=== PATIENT | female | born 1995 ===

== ENCOUNTER 2022-04-11 11:29 | Outpatient (CLI) | payer MEDICAID, SELFPAY | END 2022-04-11 11:30 | disposition home or self-care (01) | LOC: LAB 11:31 | PROVIDERS: Family Provider Pediatrics Adolescent Medicine; Visit Provider Obstetrics & Gynecology | DX: Z34.90 Encounter for supervision of normal pregnancy, unspecified, unspecified trimester (principal) | CPT/HCPCS: 81000 ==

== ENCOUNTER 2022-04-25 10:11 | Outpatient (CLI) | payer MEDICAID, SELFPAY ==
[2022-04-25 11:51] LABS: Basophils % 0.3 %; Eosinophils # 0.1 10^3/uL (0.0-0.8); Eosinophils % 0.8 %; Hematocrit 36.9 % (37.0-47.0); Hemoglobin 12.5 g/dL (11.5-15.3); Lymphocytes # 1.7 10^3/uL (0.8-4.8); Lymphocytes % 16.9 %; Mean Corpuscular HGB Conc 33.9 g/dL (30.0-36.0); Mean Corpuscular Hemoglobin 32.4 pg (28.0-34.0); Mean Corpuscular Volume 95.6 fl (81-99); Mean Platelet Volume 10.1 fL (7.4-10.4); Monocytes # 0.6 10^3/uL (0.2-0.9); Monocytes % 5.6 %; Neutrophils # 7.64 10^3/uL (1.8-7.7); Neutrophils % 75.7 %; Nucleated Red Blood Cells % 0 %; Platelet Count 264 10^3/cmm (130-400); Red Blood Count 3.86 10^6/uL (4.1-5.3); Red Cell Distribution Width 13.1 % (12.1-15.1); White Blood Count 10.1 10^3/uL (4.0-10.0)
[2022-04-25 12:28] LABS: Hepatitis B Surface Antigen Non-Reactive (Nonreactive); Hepatitis C Virus Antibody Non-Reactive (Nonreactive)
[2022-04-25 12:29] LABS: Rubella IgG 97.9 IU/mL (0.0-10.0)
[2022-04-25 12:30] LABS: HIV 1 & 2 Antigen Non-Reactive (Non-Reactiv); Rapid Plasma Reagin Syphilis Nonreactive (Nonreactive)
[2022-04-25 12:31] LABS: HIV 1 & 2 Antibody Non-Reactive (Non-Reactiv)
[2022-04-25 12:40] LABS: Glucose Tolerance 1 Hour Gest 99 mg/dL
== END 2022-04-25 10:12 | disposition home or self-care (01) ==
LOC: LAB 10:14
PROVIDERS: PCP Obstetrics & Gynecology; Visit Provider Obstetrics & Gynecology
DX: Z34.90 Encounter for supervision of normal pregnancy, unspecified, unspecified trimester (principal)
CPT/HCPCS: 36415; 80307; 82950; 84315; 85025; 86592; 86762; 86803; 86850; 86900; 87086; 87340; 87806

== ENCOUNTER → 2022-05-09 08:48 | Outpatient (BNVA) | payer MEDICAID, SELFPAY | PROVIDERS: PCP Obstetrics & Gynecology; Visit Provider Obstetrics & Gynecology | DX: Z34.90 Encounter for supervision of normal pregnancy, unspecified, unspecified trimester (principal) | CPT/HCPCS: 84315; 87086 ==

== ENCOUNTER → 2022-05-22 09:00 | Outpatient (BNVA) | payer MEDICAID, SELFPAY | PROVIDERS: PCP Obstetrics & Gynecology; Visit Provider Obstetrics & Gynecology | DX: Z34.90 Encounter for supervision of normal pregnancy, unspecified, unspecified trimester (principal) | CPT/HCPCS: 81000; 85025; 87086 ==

== ENCOUNTER → 2022-06-07 10:00 | Outpatient (BNVA) | payer MEDICAID, SELFPAY | PROVIDERS: PCP Obstetrics & Gynecology; Visit Provider Obstetrics & Gynecology | DX: Z34.90 Encounter for supervision of normal pregnancy, unspecified, unspecified trimester (principal) | CPT/HCPCS: 84315; 87081 ==

== ENCOUNTER → 2022-06-13 12:00 | Outpatient (BNVA) | payer MEDICAID, SELFPAY | PROVIDERS: PCP Obstetrics & Gynecology; Visit Provider Obstetrics & Gynecology | DX: Z34.90 Encounter for supervision of normal pregnancy, unspecified, unspecified trimester (principal) | CPT/HCPCS: 87086 ==

== ENCOUNTER → 2022-06-20 10:40 | Outpatient (BNVA) | payer MEDICAID, SELFPAY | PROVIDERS: PCP Obstetrics & Gynecology; Visit Provider Obstetrics & Gynecology | DX: Z34.90 Encounter for supervision of normal pregnancy, unspecified, unspecified trimester (principal) | CPT/HCPCS: 84315; 87086 ==

== ENCOUNTER 2022-07-04 09:25 | Outpatient (CLI) | payer MEDICAID, SELFPAY ==
[2022-07-04] VITALS (8 sets, daily range): BP systolic 128–146; BP diastolic 83–106; PULSE 48–100; RESP 16; TEMP 35.8; BMI 42.7
--- NOTE | 2022-07-04 09:34 | US_ITS ---
WS: [id number] BIOPHYSICAL PROFILE AMNIOTIC FLUID HISTORY: WELL BEING COMPARISON: 06/13/2022 Cardiac activity: 126 bpm. Cervix: Not visualized. The head is very deep within the pelvis. Placenta: Anterior, no previa or abruption. Placenta grade: 1 Parameters are as follows: Breathin Movement: 2 Tone: 2 Fluid volume: 2 Amniotic fluid index: 20.8 cm. Largest single vertical pocket 8.4 cm. US/US OB [place] NST [id number] IMPRESSION: 1. Biophysical profile score: 8/8. 2. Normal amniotic fluid index.
[2022-07-04 11:02] LABS: Basophils % 0.3 %; Eosinophils % 0.4 %; Hematocrit 39.6 % (37.0-47.0); Hemoglobin 13.5 g/dL (11.5-15.3); Lymphocytes # 1.9 10^3/uL (0.8-4.8); Lymphocytes % 17.9 %; Mean Corpuscular HGB Conc 34.1 g/dL (30.0-36.0); Mean Corpuscular Hemoglobin 31.8 pg (28.0-34.0); Mean Corpuscular Volume 93.4 fl (81-99); Mean Platelet Volume 10.9 fL (7.4-10.4); Monocytes # 0.6 10^3/uL (0.2-0.9); Monocytes % 5.3 %; Neutrophils # 8.17 10^3/uL (1.8-7.7); Neutrophils % 75.6 %; Nucleated Red Blood Cells % 0 %; Platelet Count 273 10^3/cmm (130-400); Red Blood Count 4.24 10^6/uL (4.1-5.3); Red Cell Distribution Width 12.8 % (12.1-15.1); White Blood Count 10.8 10^3/uL (4.0-10.0)
[2022-07-04 11:16] LABS: Urine Creatinine 68 mg/dL (28-217); Urine Protein Random 10 mg/dL
[2022-07-04 11:17] LABS: Alanine Aminotransferase 13 U/L (0-33); Albumin Level 3.6 g/dL (3.5-5.2); Alkaline Phosphatase 158 U/L (35-105); Anion Gap 16.1 (5-19); Aspartate Amino Transferase 15 U/L (0-32); Blood Urea Nitrogen 8 mg/dL (6-20); Carbon Dioxide 21 mmol/L (22-29); Chloride 103 mmol/L (98-107); Globulin 3.1 g/dL (1.3-4.6); Glomerular Filtration Rate 196.1 mL/min (90-130); Glucose 79 mg/dL (65-115); Osmolality Calculated 279 mOsm/kg (285-295); Potassium 4.1 mmol/L (3.5-5.1); Sodium 136 mmol/L (136-145); Total Bilirubin 0.3 mg/dL (0.15-1.2); Total Protein 6.7 g/dL (6.6-8.7); UPRO/UCREAT Ratio 0.15 mg/mg CR; Uric Acid 5.8 mg/dL (2.4-5.7)
== END 2022-07-04 11:40 | disposition home or self-care (01) ==
LOC: OPOB 09:26 → OBGYN 09:27
PROVIDERS: PCP Obstetrics & Gynecology; Visit Provider Obstetrics & Gynecology
DX: O26.899 Other specified pregnancy related conditions, unspecified trimester (principal); Z3A.00 Weeks of gestation of pregnancy not specified
CPT/HCPCS: 36415; 59025; 76819; 80053; 82570; 84156; 84315; 84550; 85025; 87086; 99211

== ENCOUNTER 2022-07-07 13:21 | Inpatient (IN) | payer MEDICAID, SELFPAY ==
[2022-07-06] VITALS (23 sets, daily range): BP systolic 121–175; BP diastolic 64–101; PULSE 56–117; RESP 18; TEMP 36.3–36.4; BMI 42.7
[2022-07-06 13:07] LABS: Basophils % 0.2 %; Eosinophils % 0.2 %; Hematocrit 38.4 % (37.0-47.0); Hemoglobin 13.2 g/dL (11.5-15.3); Lymphocytes % 19.2 %; Mean Corpuscular HGB Conc 34.4 g/dL (30.0-36.0); Mean Corpuscular Hemoglobin 32.1 pg (28.0-34.0); Mean Corpuscular Volume 93.4 fl (81-99); Mean Platelet Volume 11.3 fL (7.4-10.4); Monocytes # 0.7 10^3/uL (0.2-0.9); Monocytes % 6.5 %; Neutrophils % 73.5 %; Nucleated Red Blood Cells % 0 %; Platelet Count 280 10^3/cmm (130-400); Red Blood Count 4.11 10^6/uL (4.1-5.3); Red Cell Distribution Width 12.8 % (12.1-15.1); White Blood Count 10.3 10^3/uL (4.0-10.0)
[2022-07-06] MEDS: miSOPROStol 100 mcg tablet 25 MCG VAGINAL ×2 (13:33→17:49)
[2022-07-06] MEDS: lactated ringers 1,000 ML 999 ML IV ×2 (17:05→21:23)
[2022-07-06] MEDS: oxytocin 30 UNIT/500 ML BAG IV (23:39)
[2022-07-06] MEDS: dextrose 5%-lactated ringers 1,000 ML 125 ML IV (23:39)
[2022-07-07] VITALS (83 sets, daily range): BP systolic 109–191; BP diastolic 56–106; PULSE 54–173; RESP 15–16; TEMP 36–37.4; O2SAT 92–100
[2022-07-07] MEDS: dextrose 5%-lactated ringers 1,000 ML 125 ML IV ×2 (03:01→10:08)
[2022-07-07] MEDS: lactated ringers 1,000 ML 999 ML IV ×2 (04:26→05:28)
[2022-07-07] MEDS: ondansetron 2 mg/ML SDV 2 mL 4 MG IVP ×2 (04:45→11:16)
--- NOTE | 2022-07-07 05:49 | ANES.PREANE2 ---
Pre-Anesthetic Assessment Height/Weight: Height 1.68 m Weight 120.202 kg Temp Pulse Resp BP Pulse Ox O2 Del Method 97.0 F L 78 18 142/63 99 07/07/22 02:43 07/07/22 05:45 07/06/22 12:42 07/07/22 05:45 07/07/22 05:42 07/07/22 05:18 Preop Diagnosis: Active Labor Labor Epidural Familial anesthetic complications: none Was Beta Sanjeev taken within 24 hours: N/A Last intake: 1500 07/07/22 Social No alcohol and No tobacco Exam alert, oriented x 3 and clear to auscultation bilaterally Airway Submandibular: within normal limits Cervical ROM: within normal limits Mallampati: Class II Dentition: full History/ROS No significant history except as noted Pulmonary None reported CV/HEM None reported None reported Hepatic None reported GI None reported Metabolic Morbid Obesity [facility] None reported Neuropsych None reported Anesthetic Plan ASA status: 2 Anesthesia: Regional (specify below) Other: Labor Epidural Medications/Allergies Home Medications Medication Instructions Recorded Confirmed Last Taken Type prenat.vits,pietro,mdc-[id number] 1 tab PO DAILY 03/06/22 07/06/22 07/05/22 21:00 History Allergies Allergy/AdvReac Type Severity Reaction Status Date / Time No Known Allergies Allergy Verified 07/06/22 12:26 Current Medications Generic Name Dose Route Start Last Admin Trade Name Freq PRN Reason Stop Dose Admin Dextrose/Lactated Ringer's 1,000 mls @ 125 mls/hr 07/06/22 12:42 07/07/22 03:01 Dextrose 5%-Lactated Ringers IV 125 mls/hr .Q8H PRN Administration per label comments Lactated Ringer's 1,000 mls @ 999 mls/hr 07/06/22 16:58 07/06/22 22:30 Lactated Ringers IV Infused .Q1H1M PRN Infusion LABOR INDUCTION Oxytocin 30 unit in 500 mls @ 1 mls/hr 07/06/22 22:30 07/07/22 02:20 Pitocin IV 0 milliunit/min .Q24H ELKE 0 mls/hr Titration Protocol 1 MILLIUNIT/MIN Lactated Ringer's 1,000 mls @ 999 mls/hr 07/07/22 04:15 07/07/22 05:28 Lactated Ringers IV 999 mls/hr .Q1H1M PRN Administration See label comments Misoprostol 25 mcg 07/06/22 17:39 07/06/22 17:49 Misoprostol 100 Mcg Tablet VAGINAL 25 mcg Q4H PRN Administration LABOR INDUCTION Ondansetron HCl 4 mg 07/06/22 12:42 07/07/22 04:45 Ondansetron 2 Mg/Ml Sdv 2 Ml IVP 4 mg Q4H PRN Administration NAUSEA AND VOMITING PFSH Anesthesia Surgical History No pertinent past surgical history Family History Grandfather Diabetes Heart disease Hypertension Mother Hypertension Denies family history of Colon cancer Ovarian cancer Hypercholesteremia Breast cancer Uterine cancer Thyroid disease Stroke Female Reproductive History : 1 Data Anesthesia 07/06/22 12:30 Short CBC 07/06/22 Range/Units 12:30 WBC 10.3 H (4.0-10.0) 10^3/uL Hgb 13.2 (11.5-15.3) g/dL Hct 38.4 (37.0-47.0) % MCV 93.4 (81-99) fl Plt Count 280 (130-400) 10^3/cmm Neut % (Auto) 73.5 % Neut # (Auto) 7.60 (1.8-7.7) 10^3/uL Cardiac Studies: No Data to Display Anesthesia Procedures Epidural Time Out Performed: Yes Consent: from patient, risks and benefits reviewed and patient agrees to proceed Lumbar Level: L3-L4 Epidural position: sitting Epidural procedure: sterile prep of area, 1% lidocaine to numb the area, negative for paresthesia passed, test dose given, 1.5% xylocaine 1:200k epi, placed PCEA, no systemic response, sterile dressing applied, L.U.D. no apparent complications and 0.2% Ropiavacaine @ mls/hr (13) Additional Comments: KIEL at 8.5cm on first attempt catheter threaded to 15cm with ease. 100mcg Fentanyl, remaining 1% lidocaine and saline given via epidural.
--- NOTE | 2022-07-07 13:23 | PM.OPHPUD ---
Labor & Delivery H&P Update Date of Procedure: July 07, 2022 Date H&P Performed: 07/04/22 H&P update information: I have reviewed H&P completed within last 30 days, I have examined patient prior to procedure and No changes to prior documentation Admission Diagnosis: IUP@ 40 weeks, 3 days, induction of labor at term Preop diagnosis: induction of labor Related Problem List Diagnoses (1) Supervision of normal :
[2022-07-07 14:22] LABS: Basophils % 0.1 %; Hematocrit 38.3 % (37.0-47.0); Hemoglobin 12.9 g/dL (11.5-15.3); Lymphocytes # 1.1 10^3/uL (0.8-4.8); Mean Corpuscular HGB Conc 33.7 g/dL (30.0-36.0); Mean Corpuscular Hemoglobin 32.3 pg (28.0-34.0); Mean Corpuscular Volume 95.8 fl (81-99); Mean Platelet Volume 11.9 fL (7.4-10.4); Monocytes # 0.9 10^3/uL (0.2-0.9); Monocytes % 5.7 %; Neutrophils # 13.22 10^3/uL (1.8-7.7); Neutrophils % 86.8 %; Nucleated Red Blood Cells % 0 %; Platelet Count 223 10^3/cmm (130-400); Red Cell Distribution Width 12.9 % (12.1-15.1); White Blood Count 15.2 10^3/uL (4.0-10.0)
[2022-07-07 14:33] LABS: Blood Urine 3+ (Negative); Glucose Urine UA Norm (Normal); Ketones Urine 1+ (Negative); Protein Urine Trace (Negative); Specific Gravity, Urine 1.005 (1.005-1.030); Urine Appearance SL Hazy (CLEAR); Urine Color Yellow (Yellow); pH Urine 8 (5-7)
[2022-07-07 14:34] LABS: Add Urine Culture? Yes; Add Urine Microscopic? YES; Bacteria Urine TRACE /hpf; Bilirubin Urine Neg (Negative); Leukocyte Esterase Urine 2+ (Negative); Nitrate Urine Negative (Negative); RBC Urine 40-50 /hpf (0-2); Squamous Epithelial Cell Urine 0-4 /hpf (0-5); Urobilinogen Urine Norm (Negative); WBC Urine 15-25 /hpf (0-5)
[2022-07-07 14:49] LABS: Alanine Aminotransferase 13 U/L (0-33); Albumin Level 3.2 g/dL (3.5-5.2); Alkaline Phosphatase 159 U/L (35-105); Anion Gap 16.7 (5-19); Aspartate Amino Transferase 16 U/L (0-32); Blood Urea Nitrogen 9 mg/dL (6-20); Calcium 8.9 mg/dL (8.5-10.5); Carbon Dioxide 22 mmol/L (22-29); Chloride 104 mmol/L (98-107); Globulin 2.8 g/dL (1.3-4.6); Glomerular Filtration Rate 102.8 mL/min (90-130); Glucose 86 mg/dL (65-115); Osmolality Calculated 286 mOsm/kg (285-295); Potassium 3.7 mmol/L (3.5-5.1); Sodium 139 mmol/L (136-145); Total Bilirubin 0.6 mg/dL (0.15-1.2); Uric Acid 6.3 mg/dL (2.4-5.7)
[2022-07-07 14:52] LABS: Sulfosalicylic Acid Urine Positive (Negative)
[2022-07-07 14:55] LABS: Urine Creatinine 72 mg/dL (28-217)
[2022-07-07 15:12] LABS: UPRO/UCREAT Ratio 0.47 mg/mg CR; Urine Protein Random 34 mg/dL
--- NOTE | 2022-07-07 16:31 | PM.DELIVERY ---
Delivery Note: Date of delivery: July 07, 2022 Pre-delivery diagnoses: IUP@ 40 weeks, 3 days Post-delivery diagnoses: same, moderate shoulder dystocia Procedure: Delivering Physician: Luke Findings: Term female in the JC presentation with a double nuchal cord reduced at the perineum Pre-Delivery Course: The patient was admitted for induction at term. She received two doses of cytotec. She began to labor spontaneously. SROM occurred. The patient received an epidural for pain management. pitocin was started to augment labor. max dose was 6 units. She had complete cervical dilation and began pushing. Delivery: The patient had complete cervical dilation and began to push. The head delivered in the JC position over an intact perineum under epidural anesthesia. The head was very slow to emerge. Jackie maneuver was performed. The anterior shoulder would not deliver. Suprapubic pressure was applied and the infant lifted anteriorly. The posterior (left ) arm delivered. This was followed by the right arm and the remainder of the body. There was a double nuchal cord. It was reduced at the perineum. Total time of dystocia was 20 seconds. There was thick meconium present at time of delivery. The nose and mouth were bulb suctioned while the cord was quickly clamped and cut. The baby was taken to the warmer for evaluation and resuscitation. She was not moving the right arm, but was moving the right hand into a fist. The placenta delivered spontaneously. Cord blood was obtained. The placenta was inspected and found to be intact. Inspection of the perineum revealed a small vaginal laceration it was repaired with 2 interrupted sutures. Estimated blood loss 50 mL. Apgars on baby were 6 at 1 minute and 8 at 5 minutes. Weight of baby is 9 pounds 1 ounce. Mother and baby were stable post delivery. History History History 1 Term 0 Miscarriages/Ectopic Living Children Coding Level of Care Code Acute Code for Chg Fwd
[2022-07-07] MEDS: ibuprofen 800 mg tablet PO (21:32)
[2022-07-07] MEDS: docusate sodium 100 mg Capsule PO (21:32)
[2022-07-07] MEDS: benzocaine-menthol 78 gm Canister 1 SPRAY TOPICAL (21:33)
[2022-07-07] MEDS: lanolin oint 7 gm 1 APPLIC TOPICAL (21:33)
[2022-07-08 00:10] VITALS: BP 156/90; PULSE 80; RESP 16; O2SAT 97
[2022-07-08 01:58] VITALS: BP 129/78; PULSE 71; RESP 16; O2SAT 98
[2022-07-08 04:48] LABS: Hematocrit 33.3 % (37.0-47.0); Hemoglobin 11.2 g/dL (11.5-15.3); Mean Corpuscular HGB Conc 33.6 g/dL (30.0-36.0); Mean Corpuscular Volume 95.1 fl (81-99); Mean Platelet Volume 10.9 fL (7.4-10.4); Platelet Count 208 10^3/cmm (130-400)
[2022-07-08 06:06] VITALS: BP 136/81; PULSE 74; RESP 18; TEMP 36.7; O2SAT 98
[2022-07-08] MEDS: prenatal vitamin Capsule 1 CAP PO (09:01)
[2022-07-08] MEDS: docusate sodium 100 mg Capsule PO ×2 (09:01→18:24)
[2022-07-08] MEDS: ibuprofen 800 mg tablet PO ×3 (09:01→21:30)
--- NOTE | 2022-07-08 10:09 | ANE.PACU2 ---
Inpatient post-anesthesia follow up: Airway intact: Yes Vital signs: Temperature 98.0 F Pulse Rate 74 Respiratory Rate 18 Blood Pressure 136/81 Pulse Oximetry 98 Oxygen Delivery Me thod Room Air Oxygen Flow Rate Fraction of Inspir ed Oxygen Hydration adequate: Yes Nausea and vomiting: No Pain level: 2 Mental status: Baseline
[2022-07-08 11:00] VITALS: BP 126/72; PULSE 76; RESP 14; TEMP 36.8
[2022-07-08 15:30] VITALS: BP 103/69; PULSE 74; RESP 15; TEMP 36.7
--- NOTE | 2022-07-08 17:59 | P.PN_ITS ---
Subjective Subjective: The patient is doing well this morning. Baby has been examined by medical communication specialist and is moving arms normally. Vitals/I&O/Wt Last Vital Signs Temp 98.1 F 07/08/22 15:30 Pulse 74 07/08/22 15:30 Resp 15 07/08/22 15:30 BP 103/69 07/08/22 15:30 Pulse Ox 98 07/08/22 06:06 O2 Del Method 07/08/22 06:06 Physical Exam Narrative: The patient has no concerns today Const: COMMON NORMALS: no acute distress, patient oriented x3, no limitations, healthy appearing, alert and well nourished GENERAL APPEARANCE: cooperative, comfortable, well kempt and well developed ORIENTATION/CONSCIOUSNESS: Yes mee ke, Yes oriented to person, Yes oriented to place and Yes oriented to time Resp: COMMON NORMALS: normal respiratory effort EFFORT & INSPECTION: Yes able to speak in complete sentences GI: COMMON NORMALS: Soft to palpation and non-tender PALPATION: Yes Soft to palpation Extremity: COMMON NORMALS: no calf tenderness Neuro: COMMON NORMALS: patient oriented x3 SENSORIUM/ORIENTATION: Yes alert, Yes oriented to person, Yes oriented to place and Yes oriented to time Psych: COMMON NORMALS: mental status grossly normal, Normal thought process present, cooperative, normal affect and speech normal APPEARANCE: Yes well kempt SPEECH: Yes normal speech THOUGHT PROCESS: Normal thought process present Urinary Catheter Management: Mac: Cath Placed During This Visit: yes, but has since been removed by the nurse Reason for Continuing Indwelling Catheter: Accurate Measurement of Urinary Outp ut in Critically Ill Patients Urinary Catheter Date of Insertion: 07/07/22 Urinary Catheter Time of Insertion: 06:00 Date Urinary Catheter Removed: 07/07/22 Time Urinary Catheter Discontinued: 14:10 Data 07/08/22 04:39 07/07/22 12:54 Attestations Medical Necessity Statement*: The patient is requesting discharge tomorrow due to weather Coding Level of Care Code Acute Code for Chg Fwd
[2022-07-08 22:47] VITALS: BP 129/80; PULSE 78; RESP 14; TEMP 36.6; TEMP 36.7
[2022-07-09] MEDS: ibuprofen 800 mg tablet PO (07:28)
[2022-07-09] MEDS: prenatal vitamin Capsule 1 CAP PO (07:28)
[2022-07-09] MEDS: docusate sodium 100 mg Capsule PO (07:28)
[2022-07-09 07:30] VITALS: BP 121/76; PULSE 75; RESP 16; TEMP 36.7
--- NOTE | 2022-07-09 09:31 | P.DS_ITS ---
Discharge Providers Date of Admission: 07/07/22 13:21 Date of Discharge: July 09, 2022 Attending Provider at Admission: Kayla Butler MD Attending Provider at Discharge: Kayla Butler MD Primary Care Provider: Kayla Butler MD Diagnoses at Discharge Discharge Diagnosis (1) Supervision of normal : Status: Acute Reason for Visit Reason for Visit: induction Hospital Course Hospital Course The patient was admitted for induction at term. She had spontaneous delivery of a term . She had a 20 second shoulder dystocia. mother and baby were stable on day #2. She will be discharged home on stable condition. Physical Exam Narrative: The patient is doing well this morning. No concerns. Const: COMMON NORMALS: no acute distress, patient oriented x3, no limitations, healthy appearing, alert and well nourished GENERAL APPEARANCE: cooperative, comfortable, well kempt and well developed ORIENTATION/CONSCIOUSNESS: Yes awake, Yes oriented to person, Yes oriented to place and Yes oriented to time Resp: COMMON NORMALS: normal respiratory effort EFFORT & INSPECTION: Yes able to speak in complete sentences GI: COMMON NORMALS: Soft to palpation and non-tender PALPATION: Yes Soft to palpation Extremity: COMMON NORMALS: no calf tenderness Neuro: COMMON NORMALS: patient oriented x3 SENSORIUM/ORIENTATION: Yes alert , Yes oriented to person, Yes oriented to place and Yes oriented to time Psych: COMMON NORMALS: mental status grossly normal, Normal thought process present, cooperative, normal affect and speech normal APPEARANCE: Yes well kempt SPEECH: Yes normal speech THOUGHT PROCESS: Normal thought process present Urinary Catheter Management: Mac: Cath Placed During This Visit: yes, but has since been removed by the nurse Reason for Continuing Indwelling Catheter: Accurate Measurement of Urinary Output in Critically Ill Patients Urinary Catheter Date of Insertion: 07/07/22 Urinary Catheter Time of Insertion: 06:00 Date Urinary Catheter Removed: 07/07/22 Time Urinary Catheter Discontinued: 14:10 Discharge Data Studies Completed and Pending Laboratory Results WBC 16.0 10^3/uL (4.0-10.0) H 07/08/22 04:39 RBC 3.50 10^6/uL (4.1-5.3) L 07/08/22 04:39 Hgb 11.2 g/dL (11.5-15.3) L 07/08/22 04:39 Hct 33.3 % (37.0-47.0) L 07/08/22 04:39 MCV 95.1 fl (81-99) 07/08/22 04:39 MCH 32.0 pg (28.0-34.0) 07/08/22 04:39 MCHC 33.6 g/dL (30.0-36.0) 07/08/22 04:39 RDW 13.0 % (12.1-15.1) 07/08/22 04:39 Plt Count 208 10^3/cmm (130-400) 07/08/22 04:39 MPV 10.9 fL (7.4-10.4) H 07/08/22 04:39 Neut % (Auto) 86.8 % 07/07/22 12:54 Lymph % (Auto) 7.0 % 07/07/22 12:54 [place] % (Auto) 5.7 % 07/07/22 12:54 Eos % (Auto) 0.0 % 07/07/22 12:54 Baso % (Auto) 0.1 % 07/07/22 12:54 Neut # (Auto) 13.22 10^3/uL (1.8-7.7) H 07/07/22 12:54 Lymph # (Auto) 1.1 10^3/uL (0.8-4.8) 07/07/22 12:54 [place] # (Auto) 0.9 10^3/uL (0.2-0.9) 07/07/22 12:54 Eos # (Auto) 0.0 10^3/uL (0.0-0.8) 07/07/22 12:54 Baso # (Auto) 0.0 10^3/uL (0.0-0.1) 07/07/22 12:54 Nucleated RBC % (auto) 0 % 07/07/22 12:54 Nucleated RBCs # 0.0 /100WBC 07/07/22 12:54 Sodium 139 mmol/L (136-145) 07/07/22 12:54 Potassium 3.7 mmol/L (3.5-5.1) 07/07/22 12:54 Chloride 104 mmol/L (98-107) 07/07/22 12:54 Carbon Dioxide 22 mmol/L (22-29) 07/07/22 12:54 Anion Gap 16.7 (5-19) 07/07/22 12:54 BUN 9 mg/dL (6-20) 07/07/22 12:54 Creatinine 0.7 mg/dL (0.5-0.9) 07/07/22 12:54 GFR Calculation 102.8 mL/min (90-130) 07/07/22 12:54 Glucose 86 mg/dL (65-115) 07/07/22 12:54 Calculated Osmolality 286 mOsm/kg (285-295) 07/07/22 12:54 Uric Acid 6.3 mg/dL (2.4-5.7) H 07/07/22 12:54 Calcium 8.9 mg/dL (8.5-10.5) 07/07/22 12:54 Total Bilirubin 0.6 mg/dL (0.15-1.2) 07/07/22 12:54 AST 16 U/L (0-32) 07/07/22 12:54 ALT 13 U/L (0-33) 07/07/22 12:54 Alkaline Phosphatase 159 U/L (35-105) H 07/07/22 12:54 Total Protein 6.0 g/dL (6.6-8.7) L 07/07/22 12:54 Albumin 3.2 g/dL (3.5-5.2) L 07/07/22 12:54 Globulin 2.8 g/dL (1.3-4.6) 07/07/22 12:54 Urine Color Yellow (Yellow) 07/07/22 12:54 Urine Appearance Sl hazy (CLEAR) A 07/07/22 12:54 Urine pH 8 (5-7) H 07/07/22 12:54 Ur Specific [place] 1.005 (1.005-1.030) 07/07/22 12:54 Urine Protein Trace (Negative) 07/07/22 12:54 Urine Glucose (UA) Norm (Normal) 07/07/22 12:54 Urine Ketones 1+ (Negative) H 07/07/22 12:54 Urine Blood 3+ (Negative) H 07/07/22 12:54 Urine Nitrate Negative (Negative) 07/07/22 12:54 Urine Bilirubin Neg (Negative) 07/07/22 12:54 Prot Sulfosalicylic Acd Positive (Negative) 07/07/22 12:54 Urine Urobilinogen Norm mg/dL (Negative) 07/07/22 12:54 Ur Leukocyte Esterase 2+ (Negative) H 07/07/22 12:54 Urine RBC 40-50 /hpf (0-2) H 07/07/22 12:54 Urine WBC 15-25 /hpf (0-5) H 07/07/22 12:54 Ur Squamous Epith Cells 0-4 /hpf (0-5) H 07/07/22 12:54 Amorphous Sediment Not Reportable 07/07/22 12:54 Urine Bacteria Trace /hpf (NONE) 07/07/22 12:54 U Random Total Protein 34 mg/dL 07/07/22 12:54 Urine Creatinine 72 mg/dL (28-217) 07/07/22 12:54 Protein/Creatinin Ratio 0.47 mg/mg CR 07/07/22 12:54 Vitals Last Vital Signs Temp 98.0 F 07/08/22 22:47 Pulse 78 07/08/22 22:47 Resp 14 07/08/22 22:47 BP 129/80 07/08/22 22:47 Pulse Ox 98 07/08/22 06:06 O2 Del Method 07/08/22 06:06 Discharge Plan Discharge Patient Disposition: Home Condition: Stable Prescriptions: Continued prenat.vits,peitro,[id number] Tablet 1 tab PO DAILY Discharge Orders: Discharge Order (Routine); Ordered 07/09/22 Ordered By: Kayla Butler Referrals: Kayla Butler MD [Primary Care Provider] - 2 weeks (* Please call first thing tomorrow morning to make your 2 week appointment with ) Patient Instructions: Depression (DC), Bleeding (DC), Preeclampsia and Eclampsia After Delivery (GEN), OB Discharge Report, OB Anesthesia Instructions, OB Food/Drug Interaction Guide, Opioid Safety, OB Home Care, OB Proud Parent Packet, OB Vaginal Deliveries - [facility] Discharge Attestations Time Spent in Discharge Care*: less than 30 min Quality Metrics Clinical Quality Measures [ No reported AMI, CVA or VTE this stay] Coding Level of Care Code Acute Chg FW DC note Diagnoses Supervision of normal Z34.90
[2022-07-09 10:45] VITALS: BP 134/84; PULSE 95; RESP 16; TEMP 36.6
[2022-07-09 11:00] VITALS: BP 134/84; PULSE 95; RESP 16; TEMP 36.6
== END 2022-07-09 10:55 | disposition home or self-care (01) | DRG 807 ==
PROVIDERS: Admitting Provider Obstetrics & Gynecology; PCP Obstetrics & Gynecology; Visit Provider Obstetrics & Gynecology
DX: O48.0 Post-term pregnancy (principal); Z37.0 Single live birth; Z3A.40 40 weeks gestation of pregnancy; O66.0 Obstructed labor due to shoulder dystocia; O69.2XX0 Labor and delivery complicated by other cord entanglement, with compression, not applicable or unspecified; O77.0 Labor and delivery complicated by meconium in amniotic fluid; O70.0 First degree perineal laceration during delivery
CPT/HCPCS: 36415; 51702; 59025; 59409; 80053; 81001; 82570; 84156; 84550; 85025; 85027; 96374; 96376; 98960; J2405; J2590; J2795; J3010; J7120; J7121